=== PATIENT | female | born 1960 | race Caucasian/White ===

== ENCOUNTER 2023-07-01 09:16 | Inpatient (IN) | payer MEDICARE, OTHER ==
[~2023-07-01] VITALS: Ht 149.9 cm; Wt 38.6 kg
[~2023-07-01 09:16] MED LIST: AZIT-104 PO; CALC320T8 PO; DENO60DI SQ; FAMO20TA8 PO; GUAI-1447 PO; LEVO-72 PO; SIMV-260 PO; SULF15DR26 OU
[2023-07-01 10:37] LABS: BASOPHILS % (AUTO) 0.9 % (0.0-2.0); EOSINOPHILS % (AUTO) 0.1 % (1.0-6.0); HEMATOCRIT 38.2 % (36-46); HEMOGLOBIN 12.5 g/dL (12.0-16.0); LYMPHOCYTES # (AUTO) 0.5 K/uL (1.0-4.8); LYMPHOCYTES % (AUTO) 2.2 % (22.0-44.0); MEAN CORPUSCULAR HEMOGLOBIN 29.6 pg (26.0-34.0); MEAN CORPUSCULAR HGB CONC 32.8 G/dL (31.0-37.0); MEAN CORPUSCULAR VOLUME 90 fL (80-100); MONOCYTES # (AUTO) 0.3 K/uL (0.1-1.0); MONOCYTES % (AUTO) 1.1 % (2.0-9.0); NEUTROPHILS # (AUTO) 22.9 K/uL (1.8-7.7); PLATELET COUNT (AUTO) 414 K/uL (150-450); RED BLOOD CELL COUNT(AUTO) 4.24 MIL/uL (4.00-5.20); RED CELL DISTRIBUTION WIDTH 14.5 % (11.5-14.5)
[2023-07-01 10:51] LABS: ANION GAP 7 mmol/L (8-16); CALCIUM, TOTAL 10.4 mg/dL (8.8-10.5); CARBON DIOXIDE 30 mmol/L (22-29); CHLORIDE 102 mmol/L (98-107); CREATININE 0.55 mg/dL (0.60-1.30); GLOMERULAR FILTR. RATE CALC > 60 mL/min (>60); GLUCOSE,RANDOM 177 mg/dL (70-110); POTASSIUM 4.8 mmol/L (3.5-5.1); SODIUM SERUM 139 mmol/L (136-145); UREA NITROGEN, BLOOD 19 mg/dL (7-18)
[2023-07-01 11:01] LABS: TROPONIN I-HIGH SENSITIVITY Less Than 4 ng/L (<51)
[2023-07-01 11:03] LABS: NEUTROPHILS % (AUTO) 95.7 % (40.0-70.0)
[2023-07-01 11:08] LABS: ALANINE AMINOTRANSFERASE 31 U/L (12-78); ALKALINE PHOSPHATASE 96 U/L (46-116); ASPARTATE AMINOTRANSFERASE 31 U/L (15-37); BILIRUBIN,TOTAL 0.5 mg/dL (0.1-1.0); LIPASE 79 U/L (16-77); TOTAL PROTEIN, SERUM 8.7 g/dL (6.4-8.2)
[2023-07-01] MEDS ORDERED: 0.9% SODIUM CHLORIDE 10 ML SYRINGE IVP PRN (11:45)
[2023-07-01] MEDS ORDERED: CALC500T37 PO (11:55)
[2023-07-01] MEDS: PIPERACILLIN/TAZO 3.375 GM/D5W 50 ML IV ONE (12:23)
[2023-07-01] MEDS: SODIUM CHLORIDE 0.9% 1,150 ML IV ONE (12:23)
[2023-07-01 12:36] LABS: INR 1.1 (0.9-1.1); PROTHROMBIN TIME 11.3 SEC (9.4-11.6)
[2023-07-01 12:39] LABS: LACTIC ACID 1.5 mmol/L (0.4-2.0); TROPONIN I-HIGH SENSITIVITY Less Than 4 ng/L (<51)
[2023-07-01 12:41] LABS: APPEARANCE,URINE CLEAR (CLEAR); BILIRUBIN,URINE NEGATIVE (NEGATIVE); COLOR,URINE LIGHT YELLOW (YELLOW); GLUCOSE, URINE (UA) NEGATIVE (NEGATIVE); KETONES,URINE TRACE mg/dL (NEGATIVE); LEUKOCYTE ESTERASE ,URINE NEGATIVE (NEGATIVE); NITRATE,URINE NEGATIVE (NEGATIVE); OCCULT BLOOD,URINE SMALL (NEGATIVE); PROTEIN,URINE TRACE mg/dL (NEGATIVE); UROBILINOGEN,URINE <=1.0 mg/dL (<=1.0)
[2023-07-01 12:42] LABS: B-TYPE NATRIURETIC PEPTIDE 8 pg/mL (0-100)
[2023-07-01] MEDS: ONDANSETRON HCL 4 MG/2 ML VIAL IVP ONE (12:46)
[2023-07-01 13:21] LABS: BACTERIA,URINE Moderate /HPF (None Seen); WBC,URINE 0-2 /HPF (0-5)
[2023-07-01 13:25] LABS: INFLUENZA A-RTPCR,COMBO NEGATIVE (NEGATIVE); INFLUENZA B-RTPCR,COMBO NEGATIVE (NEGATIVE); RESPIRATORY SYNCYTIAL VRS-PCR NEGATIVE (NEGATIVE); SARS COVID19 RTPCR, COMBO NEGATIVE (NEGATIVE)
[2023-07-01] MEDS ORDERED: BISACODYL 10 MG RECTAL RECTAL SUPPOSITORY PR PRN (15:15)
[2023-07-01] MEDS ORDERED: DEXTROSE 50%-WATER 25 GM/50 ML SYRINGE IVP PRN (15:15)
[2023-07-01] MEDS ORDERED: ONDANSETRON HCL 4 MG/2 ML VIAL IVP PRN (15:15)
[2023-07-01 15:35] VITALS: BP 114/54; PULSE 95; RESP 18; TEMP 98.4
[2023-07-01] MEDS: SODIUM CHLORIDE 0.9% 1,000 ML IV ONE (16:43)
[2023-07-01] MEDS: HEPARIN SODIUM,PORCINE 5,000 UNITS/ML VIAL SQ SCH (16:43)
[2023-07-01] MEDS: VANCOMYCIN 750 MG/WATER(PEG) 150 ML IV ONE (17:48)
[2023-07-01] MEDS: PIPERACILLIN/TAZO 3.375 GM/D5W 50 ML IV SCH (17:48)
[2023-07-01 20:00] VITALS: BP 118/58; PULSE 96; RESP 18; TEMP 98.2
[2023-07-02 00:31] LABS: GLUCOMETER DEV NAME(LOC) 6N.2B; GLUCOSE,POINT OF CARE 111 MG/DL (70-110)
[2023-07-02 00:31] LABS: GLUCOMETER DEV NAME(LOC) 6N.2B; GLUCOSE,POINT OF CARE 116 MG/DL (70-110)
[2023-07-02] MEDS ORDERED: SODIUM CHLORIDE 0.9% 500 ML IV ONE ×2 (03:13→11:53)
[2023-07-02 04:13] VITALS: BP 133/66; PULSE 111; RESP 18; TEMP 98.5
[2023-07-02 06:31] LABS: GLUCOMETER DEV NAME(LOC) 6N.2B; GLUCOSE,POINT OF CARE 86 MG/DL (70-110)
[2023-07-02 07:57] LABS: ANION GAP 13 mmol/L (8-16); CARBON DIOXIDE 24 mmol/L (22-29); CHLORIDE 106 mmol/L (98-107); CREATININE 0.53 mg/dL (0.60-1.30); GLOMERULAR FILTR. RATE CALC > 60 mL/min (>60); GLUCOSE,RANDOM 88 mg/dL (70-110); SODIUM SERUM 143 mmol/L (136-145); UREA NITROGEN, BLOOD 11 mg/dL (7-18)
[2023-07-02 08:24] VITALS: BP 124/72; PULSE 101; RESP 20; TEMP 98.2
[2023-07-02 08:26] LABS: BASOPHILS % (AUTO) 0.4 % (0.0-2.0); EOSINOPHILS % (AUTO) 0.4 % (1.0-6.0); HEMATOCRIT 31.6 % (36-46); HEMOGLOBIN 10.5 g/dL (12.0-16.0); LYMPHOCYTES # (AUTO) 0.7 K/uL (1.0-4.8); LYMPHOCYTES % (AUTO) 7.4 % (22.0-44.0); MEAN CORPUSCULAR HEMOGLOBIN 29.8 pg (26.0-34.0); MEAN CORPUSCULAR HGB CONC 33.3 G/dL (31.0-37.0); MEAN CORPUSCULAR VOLUME 90 fL (80-100); MONOCYTES # (AUTO) 0.5 K/uL (0.1-1.0); MONOCYTES % (AUTO) 5.2 % (2.0-9.0); NEUTROPHILS # (AUTO) 8.4 K/uL (1.8-7.7); PLATELET COUNT (AUTO) 348 K/uL (150-450); RED BLOOD CELL COUNT(AUTO) 3.53 MIL/uL (4.00-5.20); RED CELL DISTRIBUTION WIDTH 14.5 % (11.5-14.5); WHITE BLOOD COUNT (AUTO) 9.7 K/uL (4.5-11.0)
[2023-07-02 08:33] LABS: NEUTROPHILS % (AUTO) 86.6 % (40.0-70.0)
[2023-07-02] MEDS: VANCOMYCIN 500 MG/WATER(PEG) 100 ML IV SCH (08:33)
[2023-07-02] MEDS: PANTOPRAZOLE SODIUM 40 MG/VIAL IVP SCH (08:35)
[2023-07-02 10:22] LABS: APPEARANCE,URINE CLEAR (CLEAR); BILIRUBIN,URINE NEGATIVE (NEGATIVE); COLOR,URINE LIGHT YELLOW (YELLOW); GLUCOSE, URINE (UA) NEGATIVE (NEGATIVE); LEUKOCYTE ESTERASE ,URINE SMALL (NEGATIVE); NITRATE,URINE NEGATIVE (NEGATIVE); OCCULT BLOOD,URINE TRACE (NEGATIVE); PH,URINE 5.5 (5.0-8.0); PROTEIN,URINE NEGATIVE (NEGATIVE); SPECIFIC GRAVITIY, URINE 1.018 (1.003-1.030); UROBILINOGEN,URINE <=1.0 mg/dL (<=1.0)
[2023-07-02 10:31] LABS: BACTERIA,URINE None Seen /HPF (None Seen); RBC,URINE 0-2 /HPF (0-2); SQUAMOUS EPITHELIAL CELL,UR Few /LPF (None Seen)
[2023-07-02] MEDS: POTASSIUM CHL 10 MEQ/WATER 50 ML IV SCH (11:54)
[2023-07-02 11:56] LABS: GLUCOMETER DEV NAME(LOC) 6S.2; GLUCOSE,POINT OF CARE 81 MG/DL (70-110)
[2023-07-02 15:32] VITALS: BP 125/62; PULSE 90; RESP 20; TEMP 98.1
[2023-07-02] MEDS: ACETAMINOPHEN 325 MG TABLET PO PRN (17:20)
[2023-07-02 19:36] LABS: GLUCOMETER DEV NAME(LOC) 4E.2; GLUCOSE,POINT OF CARE 91 MG/DL (70-110)
[2023-07-02 20:20] VITALS: BP 132/58; PULSE 85; RESP 20; TEMP 97.8
[2023-07-03 03:46] LABS: GLUCOMETER DEV NAME(LOC) 4E.2; GLUCOSE,POINT OF CARE 109 MG/DL (70-110)
[2023-07-03 04:17] VITALS: BP 122/67; PULSE 90; RESP 18; TEMP 97.9
[2023-07-03 08:43] LABS: ANION GAP 12 mmol/L (8-16); CALCIUM, TOTAL 9.7 mg/dL (8.8-10.5); CARBON DIOXIDE 26 mmol/L (22-29); CHLORIDE 101 mmol/L (98-107); CREATININE 0.49 mg/dL (0.60-1.30); GLOMERULAR FILTR. RATE CALC > 60 mL/min (>60); GLUCOSE,RANDOM 106 mg/dL (70-110); POTASSIUM 3.8 mmol/L (3.5-5.1); SODIUM SERUM 139 mmol/L (136-145); UREA NITROGEN, BLOOD 11 mg/dL (7-18); VANCOMYCIN,RANDOM 10.4 mcg/mL (25.0-50.0)
[2023-07-03 08:52] VITALS: BP 130/61; PULSE 98; RESP 19; TEMP 97.8
[2023-07-03 12:00] LABS: GLUCOMETER DEV NAME(LOC) 6S.2; GLUCOSE,POINT OF CARE 81 MG/DL (70-110)
[2023-07-03 16:49] VITALS: BP 128/66; PULSE 88; RESP 19; TEMP 98.2
[2023-07-03 18:11] LABS: GLUCOMETER DEV NAME(LOC) 6S.2; GLUCOSE,POINT OF CARE 91 MG/DL (70-110)
[2023-07-03] MEDS: VANCOMYCIN 750 MG/WATER(PEG) 150 ML IV SCH (19:53)
[2023-07-03 20:46] VITALS: BP 112/67; PULSE 100; RESP 18; TEMP 97.9
[2023-07-04 01:26] LABS: GLUCOMETER DEV NAME(LOC) 6N.2B; GLUCOSE,POINT OF CARE 106 MG/DL (70-110)
[2023-07-04 04:39] VITALS: BP 126/66; PULSE 91; RESP 20; TEMP 97.8
[2023-07-04 07:38] LABS: ANION GAP 13 mmol/L (8-16); CALCIUM, TOTAL 9.5 mg/dL (8.8-10.5); CARBON DIOXIDE 25 mmol/L (22-29); CHLORIDE 104 mmol/L (98-107); CREATININE 0.57 mg/dL (0.60-1.30); GLOMERULAR FILTR. RATE CALC > 60 mL/min (>60); GLUCOSE,RANDOM 89 mg/dL (70-110); POTASSIUM 3.6 mmol/L (3.5-5.1); SODIUM SERUM 141 mmol/L (136-145); UREA NITROGEN, BLOOD 10 mg/dL (7-18)
[2023-07-04 09:21] VITALS: BP 112/66; PULSE 94; RESP 19; TEMP 98
[2023-07-04 11:51] LABS: GLUCOMETER DEV NAME(LOC) 6S.2; GLUCOSE,POINT OF CARE 101 MG/DL (70-110)
[2023-07-04 12:36] LABS: GLUCOMETER DEV NAME(LOC) 4E.2; GLUCOSE,POINT OF CARE 87 MG/DL (70-110)
[2023-07-04] MEDS: LOPERAMIDE HCL 2 MG CAPSULE PO PRN (13:34)
[2023-07-04 20:20] VITALS: BP 108/62; PULSE 88; RESP 18; TEMP 97.9
[2023-07-04 20:35] LABS: GLUCOMETER DEV NAME(LOC) 6S.2; GLUCOSE,POINT OF CARE 93 MG/DL (70-110)
[2023-07-05 00:16] LABS: GLUCOMETER DEV NAME(LOC) 6S.2; GLUCOSE,POINT OF CARE 97 MG/DL (70-110)
[2023-07-05 04:13] VITALS: BP 110/67; PULSE 85; RESP 18; TEMP 98.1
[2023-07-05 07:45] LABS: GLUCOMETER DEV NAME(LOC) 6S.2; GLUCOSE,POINT OF CARE 89 MG/DL (70-110)
[2023-07-05] MEDS ORDERED: SODIUM CHLORIDE 0.9% 500 ML IV ONE (07:47)
[2023-07-05 08:22] VITALS: BP 119/48; PULSE 80; RESP 18; TEMP 98.5
[2023-07-05 08:44] LABS: ANION GAP 15 mmol/L (8-16); CALCIUM, TOTAL 9.4 mg/dL (8.8-10.5); CARBON DIOXIDE 22 mmol/L (22-29); CHLORIDE 101 mmol/L (98-107); CREATININE 0.52 mg/dL (0.60-1.30); GLOMERULAR FILTR. RATE CALC > 60 mL/min (>60); GLUCOSE,RANDOM 89 mg/dL (70-110); POTASSIUM 3.2 mmol/L (3.5-5.1); SODIUM SERUM 138 mmol/L (136-145); UREA NITROGEN, BLOOD 10 mg/dL (7-18); VANCOMYCIN,RANDOM 17.9 mcg/mL (25.0-50.0)
[2023-07-05] MEDS: INSULIN LISPRO 100 UNITS/ML SQ PRN (11:18)
[2023-07-05] MEDS ORDERED: POTASSIUM CHL 10 MEQ/WATER 50 ML IV PRN (12:00)
[2023-07-05] MEDS: POTASSIUM CHLORIDE 20 MEQ ER TABLET PO PRN (12:27)
[2023-07-05 13:26] LABS: GLUCOMETER DEV NAME(LOC) 6N.2B; GLUCOSE,POINT OF CARE 110 MG/DL (70-110)
[2023-07-05 17:07] VITALS: BP 116/66; PULSE 89; RESP 18; TEMP 98.1
[2023-07-05 19:56] LABS: GLUCOMETER DEV NAME(LOC) 6N.2B; GLUCOSE,POINT OF CARE 139 MG/DL (70-110)
[2023-07-05 20:58] VITALS: BP 100/57; PULSE 92; RESP 18; TEMP 97.8
[2023-07-06 02:59] LABS: C.DIFF GDH ANTIGEN, Stool Negative (Negative); C.DIFF TOXINS A&B, Stool Negative (Negative)
[2023-07-06 06:46] VITALS: BP 123/95; PULSE 109; RESP 18; TEMP 97.9
[2023-07-06 07:14] LABS: ANION GAP 11 mmol/L (8-16); CALCIUM, TOTAL 9.3 mg/dL (8.8-10.5); CARBON DIOXIDE 24 mmol/L (22-29); CHLORIDE 104 mmol/L (98-107); CREATININE 0.47 mg/dL (0.60-1.30); GLOMERULAR FILTR. RATE CALC > 60 mL/min (>60); GLUCOSE,RANDOM 98 mg/dL (70-110); POTASSIUM 3.8 mmol/L (3.5-5.1); SODIUM SERUM 139 mmol/L (136-145); UREA NITROGEN, BLOOD 10 mg/dL (7-18)
[2023-07-06 07:30] LABS: GLUCOMETER DEV NAME(LOC) 6N.2B; GLUCOSE,POINT OF CARE 99 MG/DL (70-110)
[2023-07-06 08:10] VITALS: BP 124/82; PULSE 80; RESP 18; TEMP 98.2
[2023-07-06 16:21] LABS: GLUCOMETER DEV NAME(LOC) 6S.2; GLUCOSE,POINT OF CARE 97 MG/DL (70-110)
== END 2023-07-06 14:35 | disposition home or self-care (01) | DRG 871 ==
LOC: EMS 09:16 → 6S 13:15
PROVIDERS: ADMIT Internal Medicine; ATTEND Internal Medicine
DX: A41.9 Sepsis, unspecified organism (principal); E43 Unspecified severe protein-calorie malnutrition; R53.2 Functional quadriplegia; Z68.1 Body mass index [BMI] 19.9 or less, adult; Z20.822 Contact with and (suspected) exposure to COVID-19; E11.9 Type 2 diabetes mellitus without complications; E78.00 Pure hypercholesterolemia, unspecified; G80.9 Cerebral palsy, unspecified; N20.0 Calculus of kidney; E87.6 Hypokalemia; R62.7 Adult failure to thrive; R19.7 Diarrhea, unspecified; Z90.11 Acquired absence of right breast and nipple; Z85.3 Personal history of malignant neoplasm of breast; Z79.899 Other long term (current) drug therapy
CPT/HCPCS: 0241U; 71045; 71250; 72192; 74150; 80048; 80053; 80202; 81001; 82962; 83605; 83690; 83880; 84132; 84145; 84484; 85025; 85610; 87040; 87077; 87086; 87186; 87205; 87324; 87449; 92526; 92610; 93005; 99285; C9113; J1644; J2405; J2543; J3480; J7030; J7040; Q9967; 36415-L1; 36415-TC

== ENCOUNTER 2024-09-26 14:24 | Emergency (ER) | payer MEDICARE, OTHER ==
[~2024-09-26] VITALS: Ht 152.4 cm; Wt 38.6 kg
[~2024-09-26 14:24] MED LIST changes: -AZIT-104 PO; -CALC320T8 PO; -DENO60DI SQ; +FAMO20 PO; -FAMO20TA8 PO; -GUAI-1447 PO; -SIMV-260 PO; +SIMV-43 PO; -SULF15DR26 OU
[2024-09-26 14:27] VITALS: BP 129/79; PULSE 121; RESP 15; TEMP 98.2; O2SAT 98
[2024-09-26 14:55] LABS: PLATELET COUNT (AUTO) 409 K/uL (150-450); RED BLOOD CELL COUNT(AUTO) 4.17 MIL/uL (4.00-5.20); RED CELL DISTRIBUTION WIDTH 13.7 % (11.5-14.5); WHITE BLOOD COUNT (AUTO) 11.3 K/uL (4.5-11.0)
[2024-09-26 15:04] LABS: CALCIUM, TOTAL 10.2 mg/dL (8.8-10.5); CREATININE 0.47 mg/dL (0.60-1.30); GLOMERULAR FILTR. RATE CALC > 60 mL/min (>60); GLUCOSE,RANDOM 101 mg/dL (70-110); SODIUM SERUM 139 mmol/L (136-145); UREA NITROGEN, BLOOD 20 mg/dL (7-18)
[2024-09-26 15:48] LABS: APPEARANCE,URINE HAZY (CLEAR); GLUCOSE, URINE (UA) NEGATIVE (NEGATIVE); LEUKOCYTE ESTERASE ,URINE LARGE (NEGATIVE); NITRATE,URINE NEGATIVE (NEGATIVE); OCCULT BLOOD,URINE LARGE (NEGATIVE); SPECIFIC GRAVITIY, URINE 1.007 (1.003-1.030)
[2024-09-26 16:08] LABS: SQUAMOUS EPITHELIAL CELL,UR Rare /LPF (None Seen)
[2024-09-26] MEDS ORDERED: CEPH-558 PO (17:15)
[2024-09-26] MEDS ORDERED: CALC200T31 PO (17:19)
[2024-09-26] MEDS ORDERED: HYOS-28 PO (17:19)
[2024-09-26] MEDS ORDERED: METF-1211 PO (17:19)
[2024-09-26] MEDS ORDERED: DENO60DI SQ (17:19)
[2024-09-26] MEDS: CEPHALEXIN MONOHYDRATE 500 MG CAPSULE PO ONE (17:24)
== END 2024-09-26 17:38 | disposition home or self-care (01) ==
LOC: EMS 14:24
DX: N30.91 Cystitis, unspecified with hematuria (principal); G82.50 Quadriplegia, unspecified; E78.00 Pure hypercholesterolemia, unspecified; Z85.3 Personal history of malignant neoplasm of breast; Z87.440 Personal history of urinary (tract) infections
CPT/HCPCS: 80048; 81001; 85025; 87086; 99283